=== PATIENT | female | born 1940 | race Caucasian/White ===

== ENCOUNTER 2019-07-26 06:36 | Day surgery (SDC) | payer MEDICARE ==
[2019-07-18 13:01] VITALS: BP 140/74
[2019-07-18 13:05] LABS: BASOPHILS % (AUTO) 0.3 % (0.0-5.0); EOSINOPHILS % (AUTO) 2.4 % (0.0-8.0); HEMATOCRIT 36.4 % (36-48); LYMPHOCYTES % (AUTO) 18.9 % (21.0-51.0); MEAN CORPUSCULAR HEMOGLOBIN 30.1 pg (27.0-33.0); MEAN CORPUSCULAR HGB CONC 32.1 g/dL (32.0-36.0); MEAN CORPUSCULAR VOLUME 93.6 fL (79-99); MONOCYTES % (AUTO) 8.2 % (3.0-13.0); NEUTROPHILS % (AUTO) 69.9 % (40.0-77.0); PLATELET COUNT (AUTO) 192 K/uL (130-400); RED BLOOD CELL COUNT(AUTO) 3.89 MIL/uL (4.00-5.50); RED CELL DISTRIBUTION WIDTH 14.9 % (11.0-15.5); WHITE BLOOD COUNT (AUTO) 5.9 K/uL (4.8-10.8)
[2019-07-18 13:19] LABS: ALBUMIN 3.6 g/dL (3.5-5.0); BILIRUBIN,TOTAL 0.5 mg/dL (0.2-1.0); CREATININE 1.5 mg/dL (0.5-1.5); POTASSIUM 4.2 mmol/L (3.5-5.1); TOTAL PROTEIN, SERUM 7.6 g/dL (6.0-8.3)
[~2019-07-26] VITALS: Ht 157.5 cm; Wt 64.4 kg
[2019-07-26] VITALS (15 sets, daily range): BP systolic 129–149; BP diastolic 69–86
[2019-07-26] MEDS: CEFAZOLIN SODIUM 1 GM VIAL IVP SCH ×2 (06:00→08:11)
[~2019-07-26 06:36] MED LIST: AMLO5TAB9 PO; ATOR10 PO; CARV25TA PO; DULO60CA64 PO; LISI40TA4 PO; METF-446 PO; QUET100T33 PO; TRIA1TAB3 PO
[2019-07-26] MEDS ORDERED: BACITRACIN 28.4 GM OINT TP ONE (07:22)
[2019-07-26] MEDS ORDERED: METHYLENE BLUE 5 MG/ML AMP ONE (07:22)
[2019-07-26] MEDS ORDERED: CEFAZOLIN SODIUM 1 GM VIAL ONE (07:22)
[2019-07-26] MEDS ORDERED: LACTATED RINGERS 1000ML 1,000 ML IV ONE (07:22)
[2019-07-26] MEDS ORDERED: GENTAMICIN SULFATE 80 MG/2 ML VIAL ONE (07:22)
[2019-07-26] MEDS ORDERED: BUPIVACAINE/EPI/PF 0.25% 30ML VIAL IJ ONE (07:22)
[2019-07-26] MEDS ORDERED: BACITRACIN 50,000 UNIT VIAL ONE (07:23)
[2019-07-26] MEDS ORDERED: LIDOCAINE PF 2% 5ML ABBOJECT ONE (07:23)
[2019-07-26] MEDS ORDERED: MIDAZOLAM HCL 1 MG/ML 2ML VIAL ONE (07:24)
[2019-07-26] MEDS ORDERED: PROPOFOL 10 MG/ML 20ML VIAL IV ONE (07:25)
[2019-07-26] MEDS ORDERED: ROCURONIUM 10MG/1ML SYR 10 MG/ML ML ONE (07:25)
[2019-07-26] MEDS ORDERED: FENTANYL CITRATE PF 50 MCG/1 ML 5ML AMP IV ONE (07:25)
[2019-07-26] MEDS ORDERED: APIX5TAB PO (07:51)
[2019-07-26] MEDS ORDERED: PROP20TA7 PO (07:51)
[2019-07-26] MEDS ORDERED: DRON400T2 PO (07:51)
[2019-07-26] MEDS ORDERED: EPHEDRINE SULFATE 50 MG/ML AMPULE ONE (08:10)
[2019-07-26] MEDS ORDERED: DEXAMETHASONE SOD PHOSPHATE 10MG/ML 1ML VIAL ONE (08:10)
[2019-07-26] MEDS ORDERED: ONDANSETRON HCL 4 MG/2 ML VIAL ONE (08:10)
[2019-07-26] MEDS ORDERED: NEOSTIGMINE 5MG/5ML SYR IV ONE (08:10)
[2019-07-26] MEDS ORDERED: GLYCOPYRROLATE 1 MG/5 ML SYRINGE ONE (08:10)
== END 2019-07-26 12:55 | disposition home or self-care (01) ==
LOC: DAH 06:36
PROVIDERS: ATTEND Plastic Surgery
DX: C44.91 Basal cell carcinoma of skin, unspecified (principal); I10 Essential (primary) hypertension; I48.91 Unspecified atrial fibrillation; M19.90 Unspecified osteoarthritis, unspecified site; Z98.890 Other specified postprocedural states; Z90.49 Acquired absence of other specified parts of digestive tract; Z79.899 Other long term (current) drug therapy; Z79.01 Long term (current) use of anticoagulants; Z82.49 Family history of ischemic heart disease and other diseases of the circulatory system
CPT/HCPCS: 15004; 15115; 36415; 80053; 85025; 88305; 93005; A4215; A4221; A4222; A4223; A4452; A4600; A4606; A4649; A4663; A6223; A6260; A6446; J0690 ×2; J1100; J1580; J2001; J2250; J2405; J2704; J2710; J3010; J3490 ×3; J7030; J7120 ×2; Q9968